=== PATIENT | male | born 1945 | race Caucasian/White ===

== ENCOUNTER → 2024-01-06 10:46 | Outpatient (REF) | payer MEDICARE, BC, SELFPAY | LOC: HWRCS 10:46 | PROVIDERS: ATTENDING PHYSICIAN Internal Medicine Cardiovascular Disease; FAMILY PHYSICIAN Psychiatry & Neurology Neurology | DX: Z95.3 Presence of xenogenic heart valve (principal); Z95.2 Presence of prosthetic heart valve; R06.02 Shortness of breath | CPT/HCPCS: 93306 ==

== ENCOUNTER → 2024-02-17 14:24 | Outpatient (REF) | payer MEDICARE, BC, SELFPAY | LOC: RAD 14:24 | PROVIDERS: ATTENDING PHYSICIAN Physician Assistant Medical; FAMILY PHYSICIAN Internal Medicine Cardiovascular Disease | DX: I38 Endocarditis, valve unspecified (principal); R63.4 Abnormal weight loss | CPT/HCPCS: 71046 ==

== ENCOUNTER → 2024-11-16 14:26 | Outpatient (REF) | payer MEDICARE, BC, SELFPAY | LOC: RAD 14:26 | PROVIDERS: ATTENDING PHYSICIAN Physician Assistant Medical | DX: R06.09 Other forms of dyspnea (principal); R09.89 Other specified symptoms and signs involving the circulatory and respiratory systems | CPT/HCPCS: 71046 ==

== ENCOUNTER → 2024-12-16 09:35 | Outpatient (REF) | payer MEDICARE, BC, SELFPAY | LOC: HWRAD 09:35 | PROVIDERS: ATTENDING PHYSICIAN Internal Medicine Critical Care Medicine; FAMILY PHYSICIAN Internal Medicine | DX: J84.10 Pulmonary fibrosis, unspecified (principal) | CPT/HCPCS: 71250 ==

== ENCOUNTER 2025-04-28 13:15 | Outpatient (RCR) | payer MEDICARE, BC, SELFPAY | END 2025-04-29 11:05 | disposition home or self-care (01) | LOC: PURB 13:15 | PROVIDERS: ATTENDING PHYSICIAN Internal Medicine Critical Care Medicine; FAMILY PHYSICIAN Internal Medicine | DX: J84.9 Interstitial pulmonary disease, unspecified (principal) | CPT/HCPCS: G0237; G0239 ==

== ENCOUNTER 2025-05-31 13:15 | Outpatient (RCR) | payer MEDICARE, BC, SELFPAY | END 2025-05-31 23:59 | disposition home or self-care (01) | LOC: PURB 13:15 | PROVIDERS: ATTENDING PHYSICIAN Internal Medicine Critical Care Medicine; FAMILY PHYSICIAN Internal Medicine | DX: J84.10 Pulmonary fibrosis, unspecified (principal); J84.9 Interstitial pulmonary disease, unspecified (principal) | CPT/HCPCS: G0239 ==

== ENCOUNTER 2025-06-28 13:15 | Outpatient (RCR) | payer MEDICARE, BC, SELFPAY | END 2025-07-01 13:00 | disposition home or self-care (01) | LOC: PURB 13:15 | PROVIDERS: ATTENDING PHYSICIAN Internal Medicine Critical Care Medicine; FAMILY PHYSICIAN Internal Medicine | DX: J84.10 Pulmonary fibrosis, unspecified (principal); J84.9 Interstitial pulmonary disease, unspecified (principal) | CPT/HCPCS: G0239 ==

== ENCOUNTER → 2025-08-04 13:19 | Outpatient (REF) | payer MEDICARE, BC, SELFPAY | LOC: HWRCS 13:19 | PROVIDERS: ATTENDING PHYSICIAN Internal Medicine Critical Care Medicine; FAMILY PHYSICIAN Internal Medicine; REFERRING PHYSICIAN Internal Medicine Cardiovascular Disease | DX: Z95.2 Presence of prosthetic heart valve (principal); I71.40 Abdominal aortic aneurysm, without rupture, unspecified | CPT/HCPCS: 71250; 93306 ==